=== PATIENT | female | born 1960 | race Caucasian/White ===

== ENCOUNTER 2024-01-08 07:54 | Outpatient (CLI) | payer BC | END 2024-01-08 07:55 | disposition home or self-care (01) | LOC: BICULT 07:54 | PROVIDERS: ATTEND Family Medicine | DX: R10.12 Left upper quadrant pain (principal); K76.0 Fatty (change of) liver, not elsewhere classified; K80.20 Calculus of gallbladder without cholecystitis without obstruction | CPT/HCPCS: 76700 ==

== ENCOUNTER 2024-01-27 09:33 | Outpatient (CLI) | payer BC | END 2024-01-27 09:34 | disposition home or self-care (01) | LOC: BICCT 09:33 | PROVIDERS: ATTEND Specialist | DX: R10.12 Left upper quadrant pain (principal); K80.20 Calculus of gallbladder without cholecystitis without obstruction; K76.0 Fatty (change of) liver, not elsewhere classified | CPT/HCPCS: 74177 ==

== ENCOUNTER 2024-02-24 06:00 | Day surgery (SDC) | payer BC ==
[2024-02-23 14:41] VITALS: BMI 27.3
[~2024-02-24 06:00] MED LIST: EPINEPHrine 0.3 MG in Ophthalmic Irrigation Solution 500 ML IRR SCH
[2024-02-24] MEDS ORDERED: PHENYLephrine 2.5% Ophth Soln 15 ml Bottle ONE (06:08)
[2024-02-24] MEDS ORDERED: Cyclopentolate 1% Opth Drop 2 ML BOT ONE (06:08)
[2024-02-24] MEDS ORDERED: Midazolam HCl 2 mg/2 ml Vial ONE (06:58)
[2024-02-24] MEDS ORDERED: fentaNYL 50 mcg/mL 1 mL Vial ONE (06:58)
[2024-02-24] MEDS ORDERED: Lidocaine 1% PF 5 ML VIAL ONE (06:58)
[2024-02-24] MEDS ORDERED: PROPOFOL 20 ML ONE (06:58)
[2024-02-24] MEDS ORDERED: Maxitrol 0.1% Opth Oint 3.5 GM TUBE ONE (07:47)
[2024-02-24] MEDS ORDERED: Lidocaine 4% PF 5 ML AMP ONE (07:47)
[2024-02-24] MEDS ORDERED: Triamcinolone 40 MG/ML VIAL ONE (07:47)
[2024-02-24] MEDS ORDERED: Bupivacaine 0.75% 10 ML VIAL ONE (07:47)
== END 2024-02-24 09:00 | disposition home or self-care (01) ==
LOC: SDC 06:00
PROVIDERS: ATTEND Ophthalmology Retina Specialist
PROC: 08T43ZZ Resection of Right Vitreous, Percutaneous Approach (ICD-10-PCS; principal; 2024-02-24)
DX: H43.311 Vitreous membranes and strands, right eye (principal); Z79.899 Other long term (current) drug therapy
CPT/HCPCS: J0171